=== PATIENT | male | born 1980 | race Two or more races ===

== ENCOUNTER 2018-12-06 16:20 | Inpatient (IN) | payer MEDICAID | END 2018-12-09 15:35 | disposition home or self-care (01) | LOC: ER 16:20 → ED HOLD 17:43 → PCU 3S 20:50 | DX: K70.30 Alcoholic cirrhosis of liver without ascites (principal); K70.10 Alcoholic hepatitis without ascites; I85.11 Secondary esophageal varices with bleeding; K85.20 Alcohol induced acute pancreatitis without necrosis or infection; D61.818 Other pancytopenia; K65.2 Spontaneous bacterial peritonitis; D62 Acute posthemorrhagic anemia; R17 Unspecified jaundice; F10.229 Alcohol dependence with intoxication, unspecified ==